=== PATIENT | female | born 1990 | race Caucasian/White ===

== ENCOUNTER 2019-07-22 19:20 | Emergency (ER) | payer SELFPAY ==
[~2019-07-22] VITALS: Ht 160 cm; Wt 91.2 kg
[2019-07-22 19:23] VITALS: Ht 160 cm; Wt 91.2 kg
[2019-07-22 21:41] VITALS: BP 120/73
== END 2019-07-22 21:42 | disposition home or self-care (01) ==
LOC: ED 19:20
DX: L05.91 Pilonidal cyst without abscess (principal); F17.210 Nicotine dependence, cigarettes, uncomplicated
CPT/HCPCS: J0696; J1885; Q0163